=== PATIENT | male | born 1955 | race Caucasian/White ===

== ENCOUNTER 2017-11-23 12:52 | Emergency (ER) | payer OTHER ==
[~2017-11-23] VITALS: Ht 175.3 cm; Wt 95.3 kg
== END 2017-11-23 17:22 | disposition home or self-care (01) ==
LOC: ER 12:52
DX: S91.122A Laceration with foreign body of left great toe without damage to nail, initial encounter (principal); W45.8XXA Other foreign body or object entering through skin, initial encounter; Y93.89 Activity, other specified; Y92.89 Other specified places as the place of occurrence of the external cause; Y99.8 Other external cause status

== ENCOUNTER 2017-11-28 19:23 | Emergency (ER) | payer OTHER ==
[~2017-11-28] VITALS: Ht 172.7 cm; Wt 97.5 kg
[2017-11-28] MEDS ORDERED: LEVAQUIN750 MG (19:53)
[2017-11-28] MEDS ORDERED: PERCOCET 5-3251 EACH (19:54)
== END 2017-11-28 23:13 | disposition home or self-care (01) ==
LOC: ER 19:23
DX: T79.8XXA Other early complications of trauma, initial encounter (principal); L03.032 Cellulitis of left toe